=== PATIENT | female | born 1945 | race Caucasian/White ===

== ENCOUNTER → 2022-06-15 | Outpatient (CLI) | payer MEDICARE ==
[~2022-06-15] MED LIST: ANTI-DIARRHEAL2 MG PO; CENTRUM SILVER1 TA2 PO; CITRACAL + D CA1 TAB PO; CORICIDIN HBP1 EACH; ENSURE HIGH PR414 ML PO; HCTZ 25MG TAB25 MG PO; LEXAPRO 5MG5 MG PO; LIPITOR 10MG10 MG PO; MASON NATURAL1200 MG PO; NEXIUM 40MG40 MG PO; PRINIVIL5 MG PO; ZANTAC 150MG T150 MG PO
== END ==
LOC: MHCPAIN 13:11
DX: M25.562 Pain in left knee (principal); R22.40 Localized swelling, mass and lump, unspecified lower limb
CPT/HCPCS: G0463

== ENCOUNTER → 2022-09-09 | Outpatient (CLI) | payer MEDICARE | LOC: MHCPAIN 13:55 | DX: M25.562 Pain in left knee (principal); M71.22 Synovial cyst of popliteal space [Baker], left knee | CPT/HCPCS: G0463 ==